=== PATIENT | male | born 1955 | race Caucasian/White ===

== ENCOUNTER 2023-11-30 11:29 | Outpatient (AMB) | payer BC, SELFPAY ==
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
== END 2023-11-30 12:39 | disposition home or self-care (01) ==
PROVIDERS: PCP Pediatrics; Visit Provider Physician Assistant
DX: M53.3 Sacrococcygeal disorders, not elsewhere classified (principal); G89.29 Other chronic pain
CPT/HCPCS: 99213

== ENCOUNTER → 2023-11-30 11:29 | Outpatient (BNVA) | payer MEDICARE, SELFPAY | PROVIDERS: PCP Pediatrics; Visit Provider Physician Assistant ==

== ENCOUNTER 2023-12-24 15:07 | Outpatient (REF) | payer BC, SELFPAY | END 2023-12-24 15:08 | disposition home or self-care (01) | LOC: HO.HOSX 15:07 | PROVIDERS: Visit Provider Physician Assistant | DX: Z13.89 Encounter for screening for other disorder (principal) ==

== ENCOUNTER 2023-12-27 09:30 | Outpatient (REF) | payer BC, SELFPAY ==
--- NOTE | ~2023-12-27 | XR_ITS ---
EXAMINATION: XR HIP, RIGHT CLINICAL INFORMATION: Sacroiliac disorder. COMPARISON: None available. TECHNIQUE: Single pelvic image and 2 detailed views of the right hip. FINDINGS: The pelvic image demonstrates probable degenerative change in the lower lumbosacral spine and SI joints. Some degenerative changes are noted in the hips. The femoral head contours remain fairly smooth. The detailed imaging of the right hip shows likely degenerative changes and degeneration at the labral attachment. Degeneration along the greater trochanter. The femoral head contour remains smooth but there is irregularity along the capsule consistent with degeneration. XR/XR hip RT min 2V IMPRESSION: No acute finding. Degenerative changes are noted here. The femoral head contour, however, remains fairly smooth. If further evaluation is warranted, recommend MRI.
== END 2023-12-27 09:31 | disposition home or self-care (01) ==
LOC: HO.HOSX 09:30
PROVIDERS: Visit Provider Physician Assistant
DX: M53.3 Sacrococcygeal disorders, not elsewhere classified (principal)
CPT/HCPCS: 73502

== ENCOUNTER 2024-01-27 07:33 | Day surgery (SDC) | payer MEDICARE, SELFPAY ==
[2024-01-25 11:01] VITALS: BMI 40.3
--- NOTE | ~2024-01-27 | FL_ITS ---
EXAMINATION: XR FLUOROSCOPY WITH IMAGES CLINICAL INFORMATION: SI joint fusion, right. COMPARISON: None available. TECHNIQUE: Fluoroscopy Supervised By: Dr. Jimenez. Fluoroscopy Time: 1 min, 17.8 sec. Cumulative Dose: 56.556 mGy. DAP: 20.529 Gycm2. Images: 2. FINDINGS: Intraoperative fluoroscopy and spot films were performed during a procedure in the OR. A lateral image demonstrates 2 wires overlying the sacrum. No definite needle or wire is seen on the AP radiograph. Please see Dr. Weems's report for complete details. FL/FL guidance in OR IMPRESSION: Intraoperative fluoroscopy and spot films were obtained. Please see Faustina's report for complete details.
--- NOTE | 2024-01-27 07:36 | P.DS_ITS ---
DS: Providers Provider Date of Service: 01/27/24 Date of discharge: 01/27/24 Primary care physician: Garett Weller MD Admitting clinician: Cornelius Jimenez DS: Diagnosis Discharge Diagnosis (1) Chronic SI joint pain: Status: Acute DS: Summary Time Attestation Discharge Coordination Time (in mins): 6 Quality: Safe Use of Opioids Does Pt have an Active Cancer Diagnosis on the Problem List?: No Quality: Stroke Does the patient have a stroke diagnosis?: No Physical Exam Vital Signs: Vital Signs: BMI result Body Mass Index 40.3 Discharge Plan Discharge Patient Disposition: Home, Self-Care Referrals: Garett Weller MD [Primary Care Provider] - 1 Week Discharge Medications: New docusate sodium [Colace] 100 mg capsule 100 mg PO BID Qty: 20 0RF oxycodone 5 mg tablet 5 mg PO Q4H PRN (Reason: pain) Qty: 30 0RF Rx Instructions: Partial Fill upon patient request. Continued atorvastatin 40 mg tablet 40 mg PO DAILY aspirin 81 mg Tablet,Delayed Release (Dr/Ec) 81 mg PO DAILY lisinopril 10 mg tablet 10 mg PO DAILY sertraline 50 mg tablet 50 mg PO DAILY naproxen 500 mg tablet 500 mg PO BID PRN (Reason: pain) fenofibrate 54 mg tablet 54 mg PO DAILY Discharge Orders: Discharge Order (Routine); Ordered 01/27/24 Ordered By: Ed Arellano Diet: Advance to usual diet Activity on Discharge: As tolerated Activity Restrictions/Additional Instructions: After your SI joint fusion surgery we ask you to observe the following restrictions/guidelines: Activity: It is normal to feel some discomfort as you increase your activity, but that will improve with time. We ask you avoid heavy lifting or acitivities that cause pain. As a general rule, 8lbs is a safe limit for lifting right after surgery. We ask you to stay off your right leg after surgery in order to help the SI joint fuse. Please use crutches or walker. You may return to driving when you are off narcotics (such as vicodin, oxycodone, dilaudid, etc), and you are back to normal functional capacity. If you have any concerns please check with office before driving. Return to work is specific to each patient and each surgery, so please speak with your doctor/PA at first follow up. Please bring paperwork such as FMLA at that time if you need it filled out. Follow up: Please call the office, , after surgery to arrange a 3 week follow up for wound check. Wound Care: Your wound was closed with glue, there are no sutures to remove. You may shower on post op day # 1. We ask that you do not let the water soak the wound. If it does get wet, just towel dry lightly. Please do not scrub your incision or place any type of chemical/ointment on the wound. No tub baths, pools or jacuzzis for one month. If you have any leaking or redness from your wound, or fevers, please call office Medications: We will give you a short supply of narcotics after surgery (usually one weeks worth). If you need more please call the office but do not use more than prescribed. You will need to give our office 48 hours notice if you need narcotics refilled and we do not fill narcotics on weekends or evenings. If you are on a narcotic, it is a good idea to take a stool softener such as colace or senna to avoid constipation If you take blood thinner such as aspirin, Plavix, Coumadin, Effient, Eliquis etc for conditions such as Afib, DVT, Pulmonary embolus, coronary disease, stents etc please speak with your surgeon about specific details as to when you can resume these medications. You can resume NSAIDs on post op day 1 (eg: Motrin, Naproxen, etc). Print Language: Upper Sorbian
[2024-01-27 08:15] VITALS: BP 141/51; PULSE 63; RESP 18; TEMP 36.7; O2SAT 95
[2024-01-27] MEDS: Gabapentin 300 MG CAPSULE PO (08:26)
[2024-01-27] MEDS: methocarbamoL 750 MG TABLET PO (08:26)
[2024-01-27] MEDS: Lactated Ringers 1,000 ML 100 ML IVCONT (08:33)
--- NOTE | 2024-01-27 08:46 | P.HPSUR_ITS ---
Pre-Procedural Eval Section A - 24 Hr Update-Section A only Date of Service: 01/27/24 Section B - Complete if H&P > 30 days Chief Complaint: Other chronic pain Details of Present Illness: Right SI joint pain Relevant Family History (Specify if Yes): No Relevant Social History: None Allergies: Allergies Allergy/AdvReac Type Severity Reaction Status Date / Time No Known Allergies Allergy Verified 01/27/24 08:06 Review of Systems Sugical H&P ROS: Negative: Constitution, Cardiovascular, Respiratory, Neurol ogical, Psychiatric, Hem-Onc, Allergic/Immunologic, Gastrointestinal, Genitourinary, Integumentary, Endocrine and Eyes/Ears/Nose/Throat and Yes, Specify: Musculoskeletal (Pain right SI joint) Exam Surgical H&P Exam: Normal: Skin and Normal: Neurological and Not Evaluated: HEENT, Not Evaluated: Heart, Not Evaluated: Lungs, Not Evaluated: Extremities and Not Evaluated: Abdomen Plan Diagnosis/Plan: Unchanged I have reviewed the history and physical and performed a pertinent physical examination on my patient. No changes have occurred unless specified. Right SI joint fusion Time Spent With Patient Time: Total time managing care of this patient today ____10 minutes.
--- NOTE | 2024-01-27 08:55 | P.CONAN_ITS ---
Documented by User: Kristy Deleon NP 01/26/24 12:55 HPI - Anesthesia Eval Consult details Narrative: 68yo M for Right Sacroiliac Joint Fusion Smoker ETOH daily: 5 beers PMFSH Active Problems Active Problems: All Active Problems Chronic SI joint pain (Acute) Past Medical History Medical History Elevated cholesterol Alcohol dependence Hypertriglyceridemia Pre-diabetes HTN (hypertension) Aortic root dilatation Atypical chest pain Lung nodule Mild aortic stenosis Chronic back pain Surgical History Surgical History History of total right knee replacement Hx of tonsillectomy H/O colonoscopy Social History Social History (Updated 01/25/24 @ 11:00 by Margaret Dejesus RN) Patient Tobacco Use Status: Current everyday Tobacco user Tobacco use type: Cigarette Cigarette Packs Per Day: 1 Cigarettes Per Day: 20.0 Years Smoked: 45 Use of substances other than those prescribed or required for medical reasons: Yes Are you DNR?: No Advance Directives: No Advance Directives Information Provided: Yes Meds Allergies Allergy/AdvReac Type Severity Reaction Status Date / Time No Known Allergies Allergy Verified 01/27/24 08:06 Home Medications ?Medication ?Instructions ?Recorded ?Confirmed ?Last Taken ?Type aspirin 81 mg tablet,delayed 81 mg PO DAILY 01/25/24 01/27/24 01/21/24 History release atorvastatin 40 mg tablet 40 mg PO DAILY 01/25/24 01/27/24 Unknown History fenofibrate 54 mg tablet 54 mg PO DAILY 01/25/24 01/27/24 Unknown History lisinopril 10 mg tablet 10 mg PO DAILY 01/25/24 01/27/24 Unknown History naproxen 500 mg tablet 500 mg PO BID PRN pain 01/25/24 01/27/24 Unknown History sertraline 50 mg tablet 50 mg PO DAILY 01/25/24 01/27/24 Unknown History Exam Height,Weight and Vital Signs: Height 5 ft 6 in Weight 113.398 kg Narrative Narrative: ECHO 12/2022 SB @ 56 ECHO 01/2023 1. Nml LV size, wall thickness and systolic function. LVEF 55-60%. Nml regional wall motion. Indeterminate LV diastolic function. 2. Mild aortic stenosis 3. C/w 2018, no change in severity of . Asc aorta is nominally larger from 3.8 to 3.9cm Assessment and Plan Assessment Anesthesia Assessment: Chart Reviewed Documented by User: Lizz Kaur DO 01/27/24 09:01 HPI - Anesthesia Eval Consult details Narrative: 68yo M for Right Sacroiliac Joint Fusion Smoker ETOH daily: 5 beers previously but patient reports cutting back. Now drinks vodka several times per week. Hx of mild with LAURA 1.2 cm2. [facility] Past Medical History Medical History Elevated cholesterol Alcohol dependence Hypertriglyceridemia Pre-diabetes HTN (hypertension) Aortic root dilatation Atypical chest pain Lung nodule Mild aortic stenosis Chronic back pain Family History Family history of problems with anesthesia: No Surgical History Surgical History History of total right knee replacement Hx of tonsillectomy H/O colonoscopy History of Problems with Anesthesia: No Social History Social History (Updated 01/25/24 @ 11:00 by Margaret Dejesus RN) Patient Tobacco Use Status: Current everyday Tobacco user Tobacco use type: Cigarette Cigarette Packs Per Day: 1 Cigarettes Per Day: 20.0 Years Smoked: 45 Use of substances other than those prescribed or required for medical reasons: Yes Are you DNR?: No Advance Directives: No Advance Directives Information Provided: Yes Meds Allergies Allergy/AdvReac Type Severity Reaction Status Date / Time No Known Allergies Allergy Verified 01/27/24 08:06 Home Medications ?Medication ?Instructions ?Recorded ?Confirmed ?Last Taken ?Type aspirin 81 mg tablet,delayed 81 mg PO DAILY 01/25/24 01/27/24 01/21/24 History release atorvastatin 40 mg tablet 40 mg PO DAILY 01/25/24 01/27/24 Unknown History fenofibrate 54 mg tablet 54 mg PO DAILY 01/25/24 01/27/24 Unknown History lisinopril 10 mg tablet 10 mg PO DAILY 01/25/24 01/27/24 Unknown History naproxen 500 mg tablet 500 mg PO BID PRN pain 01/25/24 01/27/24 Unknown History sertraline 50 mg tablet 50 mg PO DAILY 01/25/24 01/27/24 Unknown History Exam Exam Date and Time: January 27, 2024 0854 Height,Weight and Vital Signs: Height 5 ft 6 in Weight 113.398 kg Vital Signs Temperature 98.0 F 01/27/24 08:15 Pulse Rate 63 01/27/24 08:15 Respiratory Rate 18 01/27/24 08:15 Blood Pressure 141/51 H 01/27/24 08:15 Pulse Oximetry 95 01/27/24 08:15 Oxygen Delivery Method Room Air 01/27/24 08:15 Temperature 98.0 F 01/27/24 08:15 Pulse Rate 63 01/27/24 08:15 Respiratory Rate 18 01/27/24 08:15 Blood Pressure 141/51 H 01/27/24 08:15 Pulse Oximetry 95 01/27/24 08:15 Oxygen Delivery Method Room Air 01/27/24 08:15 Airway Mallampati Class: III TM Dist: <=3cm Neck ROM: Full Loose/Missing/Broken Teeth: No (patient denies any loose or broken teeth) Heart: S1S2 Lungs: CTAB Assessment and Plan Assessment Anesthesia Assessment: Anesthesia Plan Discussed and Chart Reviewed Final Anesthetic Review Family History of Problems with Anesthesia: No History of Problems with Anesthesia: No NPO: Yes ASA Class: III Final Preanesthetic Review: No Changes in Pt Med Stat, Meds/Allgs Chart Reviewed, Consent Obtained/Reviewed and Anes Risks/Benef Reviewed Patient Risk: Intermediate Procedure Risk: Intermediate Anesthetic Plan Anesthetic Plan: GA Disposition: Standard PACU
--- NOTE | 2024-01-27 11:54 | P.OP_ITS ---
Operative Note Operative Note Date of Service: 01/27/24 Narrative: Preoperative diagnosis: Right sacroiliac joint dysfunction Postoperative diagnosis: Same Operative procedure: Right sacroiliac joint fusion with 1 allograft implant Surgeon: Cornelius Jimenez MD, PhD Beaming Machine Operator: Ed Arellano PA-C Anesthesia: General Description of procedure: The patient is suffering from right SI joint dysfunction refractory to nonoperative management. The patient has tried and failed all forms of conservative manage med except for an excellent short-term response to a sacroiliac joint injection. The sacroiliac joint was confirmed to be the pain generator after repeated pain blocks. The patient was offered surgical treatment with fixation and arthrodesis of the SI joint. The patient was brought to the operating room and endotracheally intubated. The patient was turned in a prone position on Geronimo spine table. Prepping and draping was done followed by a time-out. A C-arm was alternately positioned for lateral, oblique oblique and pelvic inlet and outlet projections througout the procedure. Skin markings were made for the anticipated position of the implant. A 2.5 cm longitudinal skin incision was made. A guide pin was inserted in an outlet oblique image for guidance follow-up insertion of dilator and working cannula. This was secured by placing an anchor pin into the ilium. Consideration was taken to cut channels utilizing a series of drills for decortication and internal fixation device placement. The implant was inserted such that it passed through the ilium, across the sacroiliac joint and into the sacrum, thus transfixing the sacroiliac joint. Proper positioning was confirmed on lateral fluoroscopy. The implant was packed with autologous bone collected from remain of the sacrum and ilium. Additional graft material was inserted into the marte nitesh void following the implant. The instruments were withdrawn. Upon completion, final images were obtained that showed a satisfactory position of the implant. Hemostasis was done. The incision was closed with an 0 Vicryl to fashion a 3-0 Vicryl subdermal layer after injecting Marcaine. Dermabond was used to approximate the surgeon. All sponge and needle counts were correct. Patient was extubated and transported in a stable condition to recovery room. Estimated blood loss: 30 mL Complications: None Disposition: Discharge to home
[2024-01-27 11:55] VITALS: BP 106/39; PULSE 80; RESP 16; TEMP 36.6; O2SAT 99
[2024-01-27 12:00] VITALS: BP 101/50; PULSE 77; RESP 16; O2SAT 94
[2024-01-27 12:05] VITALS: BP 119/49; PULSE 73; RESP 16; O2SAT 95
[2024-01-27 12:10] VITALS: BP 120/56; PULSE 75; RESP 16; O2SAT 95
[2024-01-27 12:25] VITALS: BP 111/50; PULSE 68; RESP 16; TEMP 36.6; O2SAT 95
== END 2024-01-27 13:11 | disposition home or self-care (01) ==
PROVIDERS: PCP Pediatrics; Visit Provider Neurological Surgery
PROC: (CPT 27279; principal; 2024-01-27 10:10)
DX: M53.3 Sacrococcygeal disorders, not elsewhere classified (principal); M46.1 Sacroiliitis, not elsewhere classified; G89.29 Other chronic pain; M54.50 Low back pain, unspecified
CPT/HCPCS: 27279; A4364; C1713; J0131; J0690; J1100; J2250; J2371; J2405; J2704; J3010; L8699

== ENCOUNTER → 2024-01-27 07:33 | Outpatient (BNV) | payer MEDICARE, SELFPAY | PROVIDERS: PCP Pediatrics; Visit Provider Physician Assistant | DX: M53.3 Sacrococcygeal disorders, not elsewhere classified (principal); G89.29 Other chronic pain | CPT/HCPCS: 27279; 99499 ==

== ENCOUNTER 2024-02-17 14:30 | Outpatient (REF) | payer MEDICARE, SELFPAY | END 2024-02-17 14:31 | disposition home or self-care (01) | LOC: HO.HOSX 14:30 | PROVIDERS: PCP Pediatrics; Visit Provider Physician Assistant | DX: M53.3 Sacrococcygeal disorders, not elsewhere classified (principal); G89.29 Other chronic pain; Z47.89 Encounter for other orthopedic aftercare; Z98.1 Arthrodesis status | CPT/HCPCS: 99212 ==

== ENCOUNTER 2024-02-17 14:30 | Outpatient (AMB) | payer MEDICARE, SELFPAY ==
--- NOTE | 2024-02-17 14:46 | HO.SPINEOV ---
Intake Visit Reasons: 1st post op Intake Note: Mr. Villanueva is here today for his 1st post ip appointment. 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 Has noticed some improvement in the pain, so he has been pleased with that. He has been using a cane and trying to stay off the right leg as much as possible. He has been walking on it. His wound is healed up nicely. We discussed activity guidelines, restrictions and expectations after SI joint fusion. The patient will follow up in 3 weeks with a set of x-rays for his final postoperative visit. We can reschedule his left SI joint fusion as long as he is healing well at the next visit. Ed Jimenez MD, PhD [facility] Orders: Orders XR pelvis min 3V Today G89.29 - Other chronic pain, M53.3 - Sacrococcygeal disorders, not elsewhere classified Coding Level of Care Code Global (13499) Diagnoses Chronic SI joint pain M53.3; G89.29
== END 2024-02-17 14:58 | disposition home or self-care (01) ==
PROVIDERS: PCP Pediatrics; Visit Provider Physician Assistant
DX: M53.3 Sacrococcygeal disorders, not elsewhere classified (principal); G89.29 Other chronic pain
CPT/HCPCS: 99024

== ENCOUNTER 2024-03-20 11:27 | Outpatient (AMB) | payer MEDICARE, SELFPAY ==
--- NOTE | 2024-03-20 12:01 | HO.SPINEOV ---
Intake Visit Reasons: 2 week F/u with xray Intake Note: Mr. 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 He seemed significant relief of his SI joint pain from the surgery in his glad he had it done. He is looking forward to getting the left side done. His x-rays today look great. We discussed activity guidelines, restrictions and expectations after SI joint fusion. We have tentatively put him on the books for July 27 for his left SI joint fusion. All pertinent risks and benefits were discussed again, he will stop his baby aspirin 1 week prior to surgery. Ed Jimenez MD, PhD [facility] Coding Level of Care Code Global (53743) Diagnoses Chronic SI joint pain M53.3; G89.29
== END 2024-03-20 12:47 | disposition home or self-care (01) ==
PROVIDERS: PCP Pediatrics; Visit Provider Physician Assistant
DX: M53.3 Sacrococcygeal disorders, not elsewhere classified (principal); G89.29 Other chronic pain
CPT/HCPCS: 99024

== ENCOUNTER 2024-03-20 14:54 | Outpatient (REF) | payer MEDICARE, SELFPAY ==
--- NOTE | ~2024-03-20 | XR_ITS ---
EXAMINATION: XR SACROILIAC JOINTS CLINICAL INFORMATION: Sacrococcygeal disorders. Focus on the right SI joint. COMPARISON: 12/27/2023 TECHNIQUE: 3 views of the sacroiliac joints FINDINGS: Bones are osteopenic. There is mild-moderate osteoarthritis in both hips characterized by joint space narrowing and marginal osteophytes. No findings of sacroiliitis. Bridging osteophytes are suspected at the proximal margins of the SI joints bilaterally. Degenerative disc disease and facet arthropathy are present in the lower lumbar spine. Enthesopathic spurring is present at the anterior superior iliac spines and greater trochanters. XR/XR sacroiliac joint min 3V IMPRESSION: 1. Mild-moderate osteoarthritis in both hips. 2. No findings of sacroiliitis. 3. Degenerative disc disease and facet arthropathy in the lower lumbar spine.
== END 2024-03-20 14:55 | disposition home or self-care (01) ==
LOC: HO.HOSX 14:54
PROVIDERS: Visit Provider Physician Assistant
DX: M53.3 Sacrococcygeal disorders, not elsewhere classified (principal); G89.29 Other chronic pain
CPT/HCPCS: 72202; 99212

== ENCOUNTER → 2024-11-02 10:56 | Outpatient (BNV) | payer MEDICARE, SELFPAY | PROVIDERS: PCP Pediatrics; Visit Provider Internal Medicine | DX: R94.31 Abnormal electrocardiogram [ECG] [EKG] (principal) | CPT/HCPCS: 93010 ==

== ENCOUNTER 2024-11-16 07:57 | Day surgery (SDC) | payer MEDICARE, SELFPAY ==
--- NOTE | 2024-11-02 | ECG_ITS ---
Test Reason : PRE OP Blood Pressure : */* mmHG Vent. Rate : 66 BPM Atrial Rate : 66 BPM P-R Int : 152 ms QRS Dur : 82 ms QT Int : 388 ms P-R-T Axes : 77 30 86 degrees QTcB Int : 406 ms Normal sinus rhythm Cannot rule out Inferior infarct , age undetermined - could be normal variant/from lead placement Borderline ECG No previous ECGs available Referred By: Kristy Deleon Electronically Signed By: ANGIE BARKER
[2024-11-02 10:29] VITALS: BP 137/62; PULSE 66; RESP 16; O2SAT 93; BMI 41.4
--- NOTE | 2024-11-02 10:43 | HO.ANESPROP2 ---
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 Has not been seen since 2022. Encouraged follow up ETOH: has cut back on beer, drinks a couple vodkas a couple times weekly PMFSH Active Problems Active Problems: All Active Problems Chronic SI joint pain (Acute) Past Medical History Medical History Arthritis Back pain Elevated cholesterol Alcohol dependence Hypertriglyceridemia Pre-diabetes HTN (hypertension) Aortic root dilatation Atypical chest pain Lung nodule Mild aortic stenosis Chronic back pain Family History Family history of problems with anesthesia: No Surgical History Surgical History Hx of spinal surgery History of total right knee replacement Hx of tonsillectomy H/O colonoscopy History of Problems with Anesthesia: No Social History Social History Are you a primary career resource technician to a significant other at home: No Do you presently have visiting nurse or other home services: No Patient Tobacco Use Status: Current everyday Tobacco user Tobacco use type: Cigarette Cigarette Packs Per Day: 1.0 Cigarettes Per Day: 20.0 Years Smoked: 45 Use of substances other than those prescribed or required for medical reasons: No Have you been hit, kicked, punched, or otherwise hurt by someone within the past year? If so, by whom?: No Are you DNR?: No Advance Directives: No Advance Directives Information Provided: Yes Advance Directives on File: No Recently lost weight without trying: No Eating poorly because of decreased appetite: No Nutrition Risks: No Nutritional Risk Poor oral hygiene: No Meds Allergies Allergy/AdvReac Type Severity Reaction Status Date / Time No Known Allergies Allergy Verified 03/20/24 12:02 Home Medications ?Medication ?Instructions ?Recorded ?Confirmed ?Last Taken ?Type aspirin 81 mg tablet,delayed 81 mg PO DAILY 01/25/24 11/02/24 01/21/24 History release atorvastatin 40 mg tablet 40 mg PO DAILY 01/25/24 11/02/24 Unknown History fenofibrate 54 mg tablet 54 mg PO DAILY 01/25/24 11/02/24 Unknown History lisinopril 10 mg tablet 10 mg PO DAILY 01/25/24 11/02/24 Unknown History sertraline 50 mg tablet 50 mg PO DAILY 01/25/24 11/02/24 Unknown History Exam Height,Weight and Vital Signs: Height 5 ft 5 in Weight 112.945 kg Last Vital Signs Pulse 66 11/02/24 10:29 Resp 16 11/02/24 10:29 BP 137/62 11/02/24 10:29 Pulse Ox 93 11/02/24 10:29 O2 Del Method Room Air 11/02/24 10:29 Pertinent Lab Results Pertinent Lab Results: Lab Results 11/02/24 Range/Units 11:13 WBC 10.0 (4.8-10.8) X10*3/uL RBC 5.00 (4.60-5.80) X10*6/uL Hgb 15.3 (14.0-18.0) g/dl Hct 46.6 (42.0-52.0) % MCV 93.2 (80.0-98.0) fL MCH 30.6 (27.0-33.0) pg MCHC 32.8 (31.0-36.0) g/dl RDW 12.4 (11.0-16.0) % Plt Count 223 (160-400) X10*3/uL MPV 12.0 (9.4-12.4) fL Absolute Nucleated RBC 0.000 (0.0-0.012) X10*3/uL Nucleated RBC % (auto) 0.0 (0.0-0.2) /100WBC Sodium 138 (135-145) mmol/L Potassium 4.5 (3.3-5.1) mmol/L Chloride 105 (96-108) mmol/L Carbon Dioxide 24 (22-29) mmol/L Anion Gap 14 (12-20) BUN 16 (9-16) mg/dL Creatinine 0.79 (0.5-1.4) mg/dL Estim Creat Clear Calc 103.8 Estimated GFR > 60 Random Glucose 106 (60-115) mg/dL Calcium 9.8 (8.4-10.2) mg/dL Narrative Narrative: EKG 10/2024 Vent. Rate : 66 BPM Atrial Rate : 66 BPM P-R Int : 152 ms QRS Dur : 82 ms QT Int : 388 ms P-R-T Axes : 77 30 86 degrees QTcB Int : 406 ms Normal sinus rhythm Cannot rule out Inferior infarct , age undetermined - could be normal variant/from lead placement Borderline ECG No previous ECGs available No change from previous from outside facility ECHO 2022 1. Nml LV size, wall thickness, and sys function. LVEF 55-60%%. Nml RWM. Indetereminate LV diastolic function. 2. Mild aortic stenosis. (LAURA 1.4cm2) 3. Compared to 2018, no change in severity of , ascending aorta nominally larger from 3.8-3.9cm Airway Mallampati Class: III TM Dist: >3cm Neck ROM: Full Loose/Missing/Broken Teeth: No Heart: RRR Lungs: CTAB Assessment and Plan Assessment Anesthesia Assessment: Anesthesia Plan Discussed and PAT Visit Final Anesthetic Review Family History of Problems with Anesthesia: No History of Problems with Anesthesia: No Documented by User: Julieth Mosqueda MD 11/16/24 10:19 [facility] Past Medical History Medical History Arthritis Back pain Elevated cholesterol Alcohol dependence Hypertriglyceridemia Pre-diabetes HTN (hypertension) Aortic root dilatation Atypical chest pain Lung nodule Mild aortic stenosis Chronic back pain Surgical History Surgical History Hx of spinal surgery History of total right knee replacement Hx of tonsillectomy H/O colonoscopy Social History Social History Are you a primary career resource technician to a significant other at home: No Do you presently have visiting nurse or other home services: No Patient Tobacco Use Status: Current everyday Tobacco user Tobacco use type: Cigarette Cigarette Packs Per Day: 1.0 Cigarettes Per Day: 20.0 Years Smoked: 45 Use of substances other than those prescribed or required for medical reasons: No Have you been hit, kicked, punched, or otherwise hurt by someone within the past year? If so, by whom?: No Are you DNR?: No Advance Directives: No Advance Directives Information Provided: Yes Advance Directives on File: No Recently lost weight without trying: No Eating poorly because of decreased appetite: No Nutrition Risks: No Nutritional Risk Poor oral hygiene: No Meds Allergies Allergy/AdvReac Type Severity Reaction Status Date / Time No Known Allergies Allergy Verified 03/20/24 12:02 Home Medications ?Medication ?Instructions ?Recorded ?Confirmed ?Last Taken ?Type aspirin 81 mg tablet,delayed 81 mg PO DAILY 01/25/24 11/02/24 01/21/24 History release atorvastatin 40 mg tablet 40 mg PO DAILY 01/25/24 11/02/24 Unknown History fenofibrate 54 mg tablet 54 mg PO DAILY 01/25/24 11/02/24 Unknown History lisinopril 10 mg tablet 10 mg PO DAILY 01/25/24 11/02/24 Unknown History sertraline 50 mg tablet 50 mg PO DAILY 01/25/24 11/02/24 Unknown History Assessment and Plan Assessment Anesthesia Assessment: Chart Reviewed Final Anesthetic Review NPO: Yes ASA Class: III Final Preanesthetic Review: No Changes in Pt Med Stat, Meds/Allgs Chart Reviewed, Consent Obtained/Reviewed and Anes Risks/Benef Reviewed Patient Risk: Intermediate Procedure Risk: Intermediate Anesthetic Plan Anesthetic Plan: GA Disposition: Standard PACU
[2024-11-02 12:00] LABS: Hematocrit 46.6 % (42.0-52.0); Hemoglobin 15.3 g/dl (14.0-18.0); Mean Corpuscular HGB Conc 32.8 g/dl (31.0-36.0); Mean Corpuscular Hemoglobin 30.6 pg (27.0-33.0); Mean Corpuscular Volume 93.2 fL (80.0-98.0); Platelet Count 223 X10*3/uL (160-400); Red Cell Distribution Width 12.4 % (11.0-16.0)
[2024-11-02 12:33] LABS: Anion Gap 14 (12-20); Blood Urea Nitrogen 16 mg/dL (9-16); Calcium 9.8 mg/dL (8.4-10.2); Carbon Dioxide 24 mmol/L (22-29); Chloride 105 mmol/L (96-108); Creatinine Clr Calc Pharmacy 103.8; Estimated Glomerular Filt Rate > 60; Glucose Random 106 mg/dL (60-115); Potassium 4.5 mmol/L (3.3-5.1); Sodium 138 mmol/L (135-145)
--- NOTE | ~2024-11-16 | FL_ITS ---
EXAMINATION: FL GUIDANCE ONLY HISTORY: SI joint fusion COMPARISON: None available. TECHNIQUE: Fluoroscopy time: 3 7.3 seconds. Cumulative Dose: 35.705 mGy. DAP: 14.880 mGym2 Images: 5. FINDINGS: Multiple fluoroscopic spot films were obtained of the left sacroiliac joint with a probe in place. FL/FL guidance in OR IMPRESSION: Fluoroscopy during procedure. Please see procedure report for additional information. Electronically signed by: Sourav Duarte MD 11/16/2024 12:48 PM EDT
[2024-11-16 08:42] VITALS: BP 124/67; PULSE 64; RESP 14; TEMP 36.7; O2SAT 94
[2024-11-16] MEDS: methocarbamoL 750 MG TABLET PO (09:03)
[2024-11-16] MEDS: Gabapentin 300 MG CAPSULE PO (09:03)
[2024-11-16] MEDS: Lactated Ringers 1,000 ML 80 ML IVCONT (09:06)
--- NOTE | 2024-11-16 09:38 | MHC.SHP ---
Pre-Procedural Eval Section A - 24 Hr Update-Section A only Date of Service: 11/16/24 The patient is an INPATIENT: No Section B - Complete if H&P > 30 days Chief Complaint: Sacrococcygeal disorders, not elsewhere classified Details of Present Illness: left SI joint Relevant Family History (Specify if Yes): No Allergies: Allergies Allergy/AdvReac Type Severity Reaction Status Date / Time No Known Allergies Allergy Verified 03/20/24 12:02 Review of Systems Sugical H&P ROS: Negative: Constitution, Cardiovascular, Respiratory, Neurological, Psychiatric, Hem-Onc, Allergic/Immunologic, Gastrointestinal, Genitourinary, Musculoskeletal, Integumentary, Endocrine and Eyes/Ears/Nose/Throat Exam Surgical H&P Exam: Normal: HEENT, Normal: Heart, Normal: Lungs, Normal: Extremities, Normal: Abdomen, Normal: Skin and Normal: Neurological (Awake, alert) Plan Diagnosis/Plan: Unchanged I have reviewed the history and physical and performed a pertinent physical examination on my patient. No changes have occurred unless specified. Left SI joint fusion Time Spent With Patient Time: Total time managing care of this patient today __5__ minutes.
[2024-11-16] MEDS: Acetaminophen 1,000 MG/100 ML PIGGYBACK 400 MG IV (10:40)
[2024-11-16] MEDS: ceFAZolin Sodium/Dextrose,Iso 2 GM/50 ML PIGGYBACK IV (10:40)
--- NOTE | 2024-11-16 11:50 | P.DS_ITS ---
DS: Providers Provider Date of Service: 11/16/24 Date of discharge: 11/16/24 Primary care physician: Garett Weller MD Admitting clinician: Cornelius Jimenez DS: Diagnosis Discharge Diagnosis (1) Chronic SI joint pain: Status: Acute DS: Summary Time Attestation Discharge Coordination Time (in mins): 6 Quality: Safe Use of Opioids Does Pt have an Active Cancer Diagnosis on the Problem List?: No Quality: Stroke Does the patient have a stroke diagnosis?: No Physical Exam Vital Signs: Vital Signs: Last Vital Signs Temp 98.0 F 11/16/24 08:42 Pulse 64 11/16/24 08:42 Resp 14 11/16/24 08:42 BP 124/67 11/16/24 08:42 Pulse Ox 94 11/16/24 08:42 O2 Del Method Room Air 11/16/24 08:42 BMI result Body Mass Index 41.4 Discharge Plan Discharge Patient Disposition: Home, Self-Care Referrals: Garett Weller MD [Primary Care Provider] - 1 Week Discharge Medications: New docusate sodium [Colace] 100 mg capsule 100 mg PO BID Qty: 20 0RF oxycodone 5 mg tablet 5 mg PO Q4H PRN (Reason: pain) Qty: 20 0RF Rx Instructions: Partial Fill upon patient request. Continued atorvastatin 40 mg tablet 40 mg PO DAILY lisinopril 10 mg tablet 10 mg PO DAILY sertraline 50 mg tablet 50 mg PO DAILY fenofibrate 54 mg tablet 54 mg PO DAILY Held aspirin 81 mg Tablet,Delayed Release (Dr/Ec) 81 mg PO DAILY Hold Instructions: Resume on 11/23/24. You may resume 1 week after surgery Discharge Orders: Discharge Order (Routine); Ordered 11/16/24 Ordered By: Ed Arellano Diet: Advance to usual diet Activity on Discharge: Walk with crutches Activity Restrictions/Additional Instructions: After your SI joint fusion surgery we ask you to observe the following restrictions/guidelines: Activity: It is normal to feel some discomfort as you increase your activity, but that will improve with time. We ask you avoid heavy lifting or acitivities that cause pain. As a general rule, 8lbs is a safe limit for lifting right after surgery. We ask you to stay off your left leg after surgery in order to help the SI joint fuse. Please use crutches or walker. You may return to driving when you are off narcotics (such as vicodin, oxycodone, dilaudid, etc), and you are back to normal functional capacity. If you have any concerns please check with office before driving. Return to work is specific to each patient and each surgery, so please speak with your doctor/PA at first follow up. Please bring paperwork such as FMLA at that time if you need it filled out. Follow up: Please call the office, , after surgery to arrange a 3 week follow up for wound check. Wound Care: Your wound was closed with glue, there are no sutures to remove. You may shower on post op day # 1. We ask that you do not let the water soak the wound. If it does get wet, just towel dry lightly. Please do not scrub your incision or place any type of chemical/ointment on the wound. No tub baths, pools or jacuzzis for one month. If you have any leaking or redness from your wound, or fevers, please call office Medications: You can restart aspirin in 1 week We will give you a short supply of narcotics after surgery (usually one weeks worth). If you need more please call the office but do not use more than prescribed. You will need to give our office 48 hours notice if you need narcotics refilled and we do not fill narcotics on weekends or evenings. If you are on a narcotic, it is a good idea to take a stool softener such as col siria or senna to avoid constipation If you take blood thinner such as aspirin, Plavix, Coumadin, Effient, Eliquis etc for conditions such as Afib, DVT, Pulmonary embolus, coronary disease, stents etc please speak with your surgeon about specific details as to when you can resume these medications. You can resume NSAIDs on post op day 1 (eg: Motrin, Naproxen, etc). Print Language: Eritrean
--- NOTE | 2024-11-16 12:03 | W.PM.OPN ---
Operative Note Operative Note Date of Service: 11/16/24 Narrative: Preoperative diagnosis: Left Sacroiliitis Postoperative diagnosis: Same Operative procedure: Left sacroiliac joint fusion with 1 allograft implant Surgeon: Cornelius Jimenez MD, PhD Biofuels Manager: Ed Arellano PA-C Anesthesia: General Description of procedure: The patient is suffering from left SI joint sacroiliitis refractory to nonoperative management. The patient has tried and failed all forms of conservative manage med except for an excellent short-term response to a sacroiliac joint injection. The sacroiliac joint was confirmed to be the pain generator after repeated pain blocks. The patient was offered surgical treatment with fixation and arthrodesis of the SI joint. The patient was brought to the operating room and endotracheally intubated. The patient was turned in a prone position on Geronimo spine table. Prepping and draping was done followed by a time-out. A C-arm was alternately positioned for lateral, oblique oblique and pelvic inlet and outlet projections througout the procedure. Skin markings were made for the anticipated position of the implant. A 2.5 cm longitudinal skin incision was made. A guide pin was inserted in an outlet oblique image for guidance follow-up insertion of dilator and working cannula. This was secured by placing an anchor pin into the ilium. Consideration was taken to cut channels utilizing a series of drills for decortication and internal fixation device placement. The implant was inserted such that it passed through the ilium, across the sacroiliac joint and into the sacrum, thus transfixing the sacroiliac joint. Proper positioning was confirmed on lateral fluoroscopy. The implant was packed with autologous bone collected from remain of the sacrum and ilium. Additional graft material was inserted into the channel void following the implant. The instruments were withdrawn. Upon completion, final images were obtained that showed a satisfactory position of the implant. Hemostasis was done. The incision was closed with an 0 Vicryl to fashion a 3-0 Vicryl subdermal layer after injecting Marcaine. Dermabond was used to approximate the surgeon. All sponge and needle counts were correct. Patient was extubated and transported in a stable condition to recovery room. Estimated blood loss: 50 mL Complications: None Operative time: 50 minutes Disposition: Discharge to home
[2024-11-16 12:14] VITALS: BP 150/52; PULSE 75; RESP 12; TEMP 36.1; O2SAT 97
[2024-11-16 12:19] VITALS: BP 149/61; PULSE 70; RESP 16; O2SAT 92
[2024-11-16 12:24] VITALS: BP 146/65; PULSE 73; RESP 16; O2SAT 93
[2024-11-16 12:25] VITALS: BP 162/68; PULSE 71; RESP 16; O2SAT 94
== END 2024-11-16 13:05 | disposition home or self-care (01) ==
PROVIDERS: Nurse Practitioner; PCP Pediatrics; Visit Provider Neurological Surgery
PROC: (CPT 27279; principal; 2024-11-16 11:00)
DX: M46.1 Sacroiliitis, not elsewhere classified (principal); G89.29 Other chronic pain; M53.3 Sacrococcygeal disorders, not elsewhere classified; I10 Essential (primary) hypertension; E78.00 Pure hypercholesterolemia, unspecified; R73.03 Prediabetes; M54.9 Dorsalgia, unspecified; F10.20 Alcohol dependence, uncomplicated; Z79.82 Long term (current) use of aspirin; Z79.899 Other long term (current) drug therapy; Z98.890 Other specified postprocedural states; F17.210 Nicotine dependence, cigarettes, uncomplicated
CPT/HCPCS: 27279; 36415; 80048; 85027; 93005; C1713; J0131; J0690; J1100; J2003; J2250; J2405; J2704; J3010; L8699

== ENCOUNTER → 2024-11-16 07:57 | Outpatient (BNV) | payer MEDICARE, SELFPAY | PROVIDERS: PCP Pediatrics; Visit Provider Physician Assistant | DX: M53.3 Sacrococcygeal disorders, not elsewhere classified (principal); G89.29 Other chronic pain | CPT/HCPCS: 27279; 99499 ==

== ENCOUNTER 2024-12-06 10:01 | Outpatient (REF) | payer MEDICARE, SELFPAY | END 2024-12-06 10:02 | disposition home or self-care (01) | LOC: HO.HOSX 10:01 | PROVIDERS: PCP Pediatrics; Visit Provider Physician Assistant | DX: Z98.1 Arthrodesis status (principal) | CPT/HCPCS: 99212 ==

== ENCOUNTER 2024-12-06 10:01 | Outpatient (AMB) | payer MEDICARE, SELFPAY ==
--- NOTE | 2024-12-06 10:06 | A.SPINEOV_ITS ---
Intake Visit Reasons: 1st post op Intake Note: Mr. Montenegro is here today for his 1st post op. Diving Judge Required: No Allergies No Known Allergies Allergy (Verified 11/16/24 10:45) Assessment & Plan Assessment & Plan (1) S/P fusion of sacroiliac joint: Code(s): Z98.1 - Arthrodesis status Category: Surgical Plan Operative procedure: Left sacroiliac joint fusion Denys comes in today for his 1st postoperative appointment after having a left SI joint fusion completed by Dr. Jimenez about 3 weeks ago. He is accompanied by his Rafaela. He reports that overall he has done very well since his surgery. He has been ambulating with the assistance of a cane I tried to refrain from excessive weight-bearing on his left-hand side. He is not taking any medications anymore for the pain. He feels he has been ambulating well and making satisfactory progress overall. He asked several questions regarding the postoperative healing course, all of which I answered to the best of my ability today. No new neurological deficits. The patient ambulates well and rises from a seated position without difficulty. He does use his cane for assistance with ambulation. His posterior incision site is closed and well healing with no signs of drainage or edema. I would like to follow up with Denys again in 6 weeks and obtain a set of x- rays of the left SI joint. Carlos Jimenez MD,PhD [facility] Orders: Orders XR sacroiliac joint 1-2V Today Z98.1 - Arthrodesis status Coding Level of Care Code Global (42191) Diagnoses S/P fusion of sacroiliac joint Z98.1
--- OUTSIDE RECORDS SUMMARY | 2024-12-06 11:32 | XMS_ITS | Clinical Summary ---
[facility] Address [address] [place] [address] Care Team Providers Care Puller Over Name Role Phone Garett Weller MD Primary Care Provider [phone] Allergies No known active allergies Medications Medication Sig Dispensed Refills Start Date End Date Status ASPIR-LOW 81 MG EC tablet TAKE ONE TABLET BY MOUTH EVERY DAY 1 12/01/2017 Active atorvastatin (LIPITOR) tablet 40 mg 0 12/17/2017 Active fenofibrate (TRICOR,LOFIBRA) tablet 54 mg TAKE ONE TABLET BY MOUTH EVERY DAY 1 12/02/2017 Active lisinopril (PRINIVIL,ZESTRIL) tablet 5 mg TAKE ONE TABLET BY MOUTH EVERY DAY 1 12/01/2017 Active buPROPion (WELLBUTRIN SR) 150 MG 12 hr tablet Take by mouth. 0 Activ e acetaminophen (TYLENOL) [address] 650 mg rectally every 4 (four) hours as needed for fever. 0 Active lisinopril (PRINIVIL,ZESTRIL) tablet 10 mg Take 10 mg by mouth. 0 12/15/2019 Active atorvastatin (LIPITOR) tablet 40 mg Take 40 mg by mouth. 0 06/11/2020 Active sulindac (CLINORIL) 150 MG tablet Take 150 mg by mouth 2 (two) times a day with meals. 0 10/24/2021 Active sertraline (ZOLOFT) 50 MG tablet Take 50 mg by mouth daily. 0 12/10/2021 Active celecoxib (CeleBREX) 200 MG capsule Take 200 mg by mouth daily. 0 02/06/2022 Active gabapentin (NEURONTIN) 300 MG capsule Take 300 mg by mouth every night at bedtime. 0 02/06/2022 Active methocarbamol (ROBAXIN) 750 MG tablet Take 750 mg by mouth 3 (three) times a day as needed. for spasm 0 02/06/2022 Active oxyCODONE (ROXICODONE) 5 MG immediate release tablet TAKE 1-2 TABLETS BY MOUTH EVERY 4-6 HOURS NEEDED FOR PAIN 0 02/06/2022 Active [facility] Senna Plus 8.6-50 MG TAKE 2 TABLETS BY MOUTH AT BEDTIME 0 02/06/2022 Active amoxicillin (AMOXIL) 500 MG tablet Take 4 tabs 1 hour prior to dental appointment 20 tablet 3 02/20/2022 Active Active Problems Problem Noted Date Diagnosed Date Arthritis of knee, right 01/12/2019 Arthritis of knee, left 01/12/2019 Primary osteoarthritis of both knees 12/22/2017 Family History Medical History Relation Name Comments Cancer Brother Cancer Father Hyperlipidemia Mother Relation Name Status Comments Brother Father Mother Social History Tobacco Use Types Packs/Day Years Used Date Smoking Tobacco: Every Day Cigarettes 1 Started: 1972 Alcohol Use Standard Drinks/Week Comments Yes 10 (1 standard drink = 0.6 oz pu re alcohol) Sex and Gender Information Value Date Recorded Sex Assigned at Not on file Gender Identity Not on file Sexual Orientation Not on file Job Start Date Occupation Industry Not on file Not on file Not on file Last Filed Vital Signs Vital Sign Reading Time Taken Comments Blood Pressure - - Pulse - - Temperature - - Respiratory Rate - - Oxygen Saturation - - Inhaled Oxygen Concentration - - Weight 104.3 kg (230 lb) 01/20/2022 10:23 AM EDT Height 167.6 cm (5' 6 ) 01/20/2022 10:23 AM EDT Body Mass Index 37.12 01/20/2022 10:23 AM EDT Plan of Treatment Health Maintenance Due Date Last Done Comments Hepatitis C Screening 1955 COVID-19 Vaccine (#1) 05/25/1956 Pneumococcal Vaccine (1 of 2 - PCV) 11/23/1961 Depression Screening 1967 BMI Counseling 11/23/1973 Preventative Health Evaluation 11/23/1973 Tobacco Cessation Counseling 11/23/1973 Colon Cancer Screening (Colonoscopy) 11/23/2000 Shingrix-Zoster Vaccine (1 of 2) 11/23/2005 Abdominal Aortic Aneurysm (A AA) Screening 11/23/2020 Fall Risk Assessment 11/23/2020 Influenza Vaccine (#1) 2024 DTap / Tdap / Td (2 - Td or Tdap) 05/21/2026 016 RSV Adult > 60+ Yrs or Pregn ant (1 - 1-dose 75+ series) 11/23/2030 Hepatitis B Vaccines Aged Out No long er eligible based on patient's age to complete this topic RSV Ped < 20 months Aged Out No longe r eligible based on patient's age to complete this topic Care Teams Puller Over Relationship Specialty Start Date End Date Garett Weller MD PCP - General Stone Polisher 12/01/17
--- OUTSIDE RECORDS SUMMARY | 2024-12-06 11:33 | XMS_ITS | Clinical Summary ---
Author Organization [facility] [address] [facility] Address [address] [place] [address] Phone Care Team Providers Care Food And Beverage Attendant Name Role Phone Ivan Weller MD Primary Care Provider [phone] Allergies No known active allergies Medications lisinopriL (PRINIVIL,ZESTR IL) 10 mg tablet Take 1 tablet (10 mg total) by mouth 1 (one) time each day. 4 Active fenofibrate (LOFIBRA) 54 mg tablet Take 1 tablet (54 mg total) by mouth 1 (one) time each day. 4 Active aspirin 81 mg EC tablet Take 1 tablet (81 mg total) by mouth 1 (one) time each day. 0 Active atorvastatin (LIPITOR) 40 mg tablet TAKE 1 TABLET BY MOUTH EVERY DAY 90 tablet 1 5 Active sertraline (Zoloft) 50 mg tablet Take 1 tablet (50 mg total) by mouth 1 (one) time each day. 90 tablet 5 Active sertraline (Zoloft) 50 mg tablet Take 1 tablet (50 mg total) by mouth 1 (one) time each day. 90 tablet 5 12/02/19 25 Discontinu ed(Reorder ) Active Problems Problem Noted Date Diagnosed Date Morbid obesity (CMS/HCC V24, CMS/HCC V28) 2024 Diet-controlled diabetes rangel litus ([facility] V24, [facility] V28) 01/05/2024 Aortic stenosis 12/22/2022 Overview (06/09/2024): Last Assessment & Plan: Mild aortic stenosis of trileaflet aortic valve around 5 years ago. I suggested we obtain an echocardiogram to reassess the degree of aortic stenosis which on physical exam is likely mild. We will determine an appropriate follow-up interval for echocardiogram on the basis of this study. I will plan to call the patient and discuss the results directly. I have not scheduled routine clinical follow-up at this time and we can establish further follow-up on the basis of the echocardiogram Chronic bilateral low back pain without sciatica 07/23/2022 Lung nodules 12/02/2020 Overview (06/09/2024): LDCT 11/2020 stable. 12 mo Atypical chest pain 10/19/2018 Overview (06/09/2024): 06/09- ECHO- mild LVH, normal EF. 10/11- MIBI- negative for ischemia Aortic root dilatation ([facility] V24) 07/13/2018 Overview (06/09/2024): 07/10- ECHO- borderline 3.8cm, 1 year f/u echo ordered 02/12--- 3.9 cm Essential hypertension 04/11/2018 Overview (06/09/2024): Last Assessment & Plan: Blood pressure well controlled on current regimen. I not have any specific concerns regarding occasionally low diastolic blood pressure. Prediabetes 02/03/2017 Hypertriglyceridemia 11/19/2016 Excessive drinking alcohol 05/21/2016 Excessive sweating 05/21/2016 Knee pain 09/02/2009 External hemorrhoids 12/08/2006 Overview (06/09/2024): IMO update Pure hypercholesterolemia 12/07/2005 Tobacco use disorder 12/07/2005 Overview (06/09/2024): LDCT 12/13, 12/14. 12 mo Encounters Date Type Department Care Team Description 11/30/2024 Telephone Lung Screening Program - [address] [place] [address] Narcisa Olivo [place] Appointment (1st No) 10/23/2024 3:45 PM EST Office Visit Adult Medicine - [place] [address] [place] [address] Ed Cisse PA Diet-controlled diabetes mellitus ([facility] V24, [facility] V28) (Primary Dx); Hypertriglyceridemia; Essential hypertension; Nonrheumatic aortic valve stenosis; Morbid obesity ([facility] V24, [facility] V28) 10/20/2024 Telephone Adult Medicine - [place] [address] [place] [address] Ed Cisse PA 09/07/2024 Telephone [facility] - [address] [place] [address] Ivan Weller MD Medical Records from Last 3 Months Immunizations Name Administration Dates Next Due Moderna SARS-CoV-2 COVID-19, mRNA, LNP-S, preservative free 10/31/2020,10/03/2020 Pneumococcal conjugate 20 va lent (Prevnar 20, PCV 20) 2mo and older 05/22/2024 Td Tetanus diptheria (Tdvax) 7yo and older 08/07,12/12/2001 Tdap Tetanus diptheria acell ular pertussis (Boostrix; Adacel) 7yo and older 05/21/2016 Surgical History Surgery Date Site/Laterality Comments TONSILLECTOMY 1961 PROCEDURE: HISTORICAL TONSILLECTOMY COLONOSCOPY 03/01/2007 PROCEDURE: HISTORICAL COLONOSCOPY; COMMENT: hemorrhoids; repeat in ten years COLONOSCOPY W/ POLYPECTOMY 11/29/2017 PROCEDURE: DE COLSC FLX W/RMVL OF TUMOR POLYP LESION SNARE TQ; COMMENT: adenoma and hemorrhoids; repeat in 5 yrs TOTAL KNEE ARTHROPLASTY 01/2022 Right PROCEDURE: HISTORICAL TOTAL KNEE REPLACE Medical History Medical History Date Comments Lung nodules 12/02/2020 DX:Lung nodules; COMMENT: LDCT 11/2020 Tobacco use disorder 12/07/2005 DX:Tobacco use disorder Pure hypercholesterolemia 12/07/2005 DX:Pur e hypercholesterolemia Prediabetes 02/03/2017 DX:Prediabetes Hypertriglyceridemia 11/19/2016 DX:Hypertri glyceridemia External hemorrhoids 12/08/2006 DX:External hemorrhoids; COMMENT: IMO update Aortic root dilatation (CMS/HCC V24) 07/13/2018 DX:Aortic root dilatation (HCC); COMMENT: 07/10- ECHO- borderline 3.8cm, 1 year f/u echo ordered Excessive drinking alcohol 05/21/2016 DX:Ex cessive drinking alcohol Family History Medical History Relation Name Comments Other: aids Brother Asthma Daughter Other cancer Father bone and kidney Alzheimer's disease Mother Breast cancer Mother's side aunt Relation Name Status Comments Brother Daughter Alive Father Maternal Grandfather Maternal Grandmother Mother Mother's side Paternal Grandfather Paternal Grandmother Social History Tobacco Use Types Packs/Day Years Used Date Smoking Tobacco: Every Day Cigarettes Smokeless Tobacco: Never Alcohol Use Standard Drinks/Week Comments Yes 0 (1 standard drink = 0.6 oz pur e alcohol) Sex and Gender Information Value Date Recorded Sex Assigned at Not on file Legal Sex Male 2:37 AM EST Gender Identity Not on file Sexual Orientation Not on file Obstetrics History Last Filed Vital Signs Vital Sign Reading Time Taken Comments Blood Pressure 138/58 10/23/2024 3:42 PM EST Pulse 58 10/23/2024 3:42 PM EST Temperature 36.6 ??C (97.9 ??F) 10/23/2024 3:42 PM ES T Respiratory Rate - - Oxygen Saturation - - Inhaled Oxygen Concentration - - Weight 113 kg (249 lb) 10/23/2024 3:42 PM EST Height 167.6 cm (5' 6 ) 10/23/2024 3:42 PM EST Body Mass Index 40.19 10/23/2024 3:42 PM EST Plan of Treatment Upcoming Encounters Date Type Department Care Team (Late st Contact Info) Description 12/15/2024 3:00 PM EDT Appointment [facility] CT Scan [address] [place] [address] Health Maintenance Due Date Last Done Comments Diabetes: Annual Foot Exam 11/23/1965 Diabetes: Annual Retina Eye Exam 11/23/1965 Hepatitis A Vaccines (1 of 2 - Risk 2-dose series) 11/23/1974 Zoster Vaccines (1 of 2) 11/23/2005 RSV Immunization Adult Patients (1 - Risk 60-74 years 1-dose series) 2015 Abdominal Aortic Aneurysm (AAA) Screen 08/01/2022 Depression Screening 08/01/2022 Falls Risk Assessment 08/01/2022 Medicare Annual Wellness Visit 08/01/2022 Social Influencers of Health Screening 08/01/2022 COVID-19 Vaccine ( - season) 2024 07/24/2021, 10/31/2020, 10/03/2020 Lung Cancer Screening (Low Dose CT) 12/19/2024 12/20/2023, 12/17/2023, 12/16/2022, Additional history exists Diabetes: Blood Sugar Control Test (HGBA1C) 04/19/2025 10/20/2024, 01/05/2024, 01/05/2024 Influenza Vaccine (Season Ended) 2025 Diabetes: Annual Urine Albumin-Creatinine Ratio (uACR) 10/20/2025 10/20/2024, 05/22/2021 Diabetes: Annual GFR (Glomerular Filtration Rate) 10/20/2025 10/20/2024, 01/05/2024, 01/05/2024 Hypertension/CHF/CAD Annual BMP Blood Test 10/20/2025 10/20/2024, 01/05/2024, 01/05/2024 DTaP,Tdap,and Td Vaccines (4 - Td or Tdap) 05/21/2026 05/21/2016, 08/07/2005, 12/12/2001 Colorectal Cancer Screening: Colonoscopy 05/05/2029 05/05/2024 Cholesterol Screening (Lipid Panel) 10/20/2029 10/20/2024, 01/05/2024, 01/05/2024 Hepatitis C Screening Completed 05/21/2016 Pneumococcal Vaccine: 50+ Years Completed 05/22/2024 HIB Vaccines Aged Out No longer eligi ble based on patient's age to complete this topic HPV Vaccines Aged Out No longer eligi ble based on patient's age to complete this topic Hepatitis B Vaccines Aged Out No long er eligible based on patient's age to complete this topic IPV Vaccines Aged Out No longer eligi ble based on patient's age to complete this topic MMR Vaccines Aged Out No longer eligi ble based on patient's age to complete this topic Meningococcal ACWY Vaccine Aged Out N o longer eligible based on patient's age to complete this topic Meningococcal B Vaccine Aged Out No l onger eligible based on patient's age to complete this topic RSV Immunization Patients Under 20 months Aged Out No longer eligible based on patient's age to complete this topic Varicella Vaccines Aged Out No longer eligible based on patient's age to complete this topic Procedures Procedure Name Priority Date/Time Associated Diagnosis Comments EXTERNAL XRAY REPORT 11/16/2024 EXTERNAL XRAY REPORT 11/16/2024 MICROALBUMIN CREATININE URINE RATIO Routine 10/20/2024 10:37 AM EST Diet-controlled diabetes mellitus ([facility]/HCC V24, CMS/HCC V28) HEMOGLOBIN A1C Routine 10/20/2024 10:37 AM EST Diet-controlled diabetes mellitus ([facility]/HCC V24, CMS/HCC V28) LIPID PANEL WITH REFLEX TO DIRECT LDL Routine 10/20/2024 10:37 AM EST Diet-controlled diabetes mellitus (CMS/HCC V24, CMS/HCC V28) COMPREHENSIVE METABOLIC PANEL Routine 10/20/2024 10:37 AM EST Diet-controlled diabetes mellitus ([facility]/HCC V24, CMS/HCC V28) COLONOSCOPY Routine 05/05/2024 CT LUNG SCREENING LOW DOSE Routine 12/20/2023 10:30 AM EDT Nicotine dependence, cigarettes, uncomplicated HEPATITIS C SCREENING Routine 05/21/2016 from Last 3 Months or Most Recently Relevant to Health Maintenance Results * External Xray Report (11/16/2024) Only the most recent of2 resultswithin the time period is included. Anatomical Region Laterality Modality Radiographic Gisele ging Provider [facility] XR PROCEDURES Final Result * (ABNORMAL) Lipid panel with reflex to direct LDL (10/20/2024 10:37 AM EST) Cholesterol 184 0 - 200 mg/dL LAB CHEMISTRY METHOD 10/20/2024 2:50 PM EST [facility] Triglycerides 320(H) 0 - 150 mg/dL LAB CHEMISTRY METHOD 10/20/2024 2:50 PM EST [facility] HDL 36(L) >=40 mg/dL LAB CHEMISTRY METHOD 10/20/2024 2:50 PM EST [facility] LDL Calculated 84 0 - 100 mg/dL LAB CHEMISTRY METHOD 10/20/2024 2:50 PM [facility] VLDL Cholesterol Ba 64 mg/dL LAB CHEMISTRY METHOD 10/20/2024 2:50 PM [facility] Non HDL Chol. (LDL+VLDL) 148(H) <145 mg/dL LAB CHEMISTRY METHOD 10/20/2024 2:50 PM [facility] Chol/HDL Ratio 5.1(H) 0.0 - 4.4 LAB CHEMISTRY METHOD 10/20/2024 2:50 PM [facility] Blood Venous blood specimen / Unknown Venipuncture / Unknown 10/20/2024 10:37 AM EST 10/20/2024 10:37 AM EST Ed VAZQUEZ LAB BLOOD ORDERABLES Final Res ult [facility] [address] [place] [address], * Microalbumin creatinine urine ratio (10/20/2024 10:37 AM EST) Creatinine, Urine 116.0 mg/dL LAB CHEMISTRY METHOD 10/20/2024 12:45 PM EST [facility] Microalb, Ur 14.9 0.0 - 29.0 mg/L LAB CHEMISTRY METHOD 10/20/2024 12:45 PM EST [facility] Microalb/Creat Ratio 13 <30 mg/g creat LAB CHEMISTRY METHOD 10/20/2024 12:45 PM EST [facility] Urine Urine specimen obtained by clean catch procedure / Unknown Non-blood Collection / Unknown 10/20/2024 10:37 AM EST 10/20/2024 10:37 AM EST Ed VAZQUEZ LAB URINE ORDERABLES Final Res ult Performing Organization Address [facility]/ZIP Co de Phone Number [facility] [address] [place] [address], [place] [phone] * (ABNORMAL) Hemoglobin A1c (10/20/2024 10:37 AM EST) Hemoglobin A1C 6.6(H) <6.5 % LAB CHEMISTRY METHOD 10/23/2024 2:13 PM EST [facility] Mean Bld Glu Estim. 143 mg/dL LAB CHEMISTRY METHOD 10/23/2024 2:13 PM EST [facility] Blood Venous blood specimen / Unknown Venipuncture / Unknown 10/20/2024 10:37 AM EST 10/20/2024 10:37 AM EST us Ed VAZQUEZ LAB BLOOD ORDERABLES Final Res ult Performing Organization Address City/[facility]/ZIP Co de Phone Number [facility] [address] [place] [address], [place] [phone] * (ABNORMAL) Comprehensive metabolic panel (10/20/2024 10:37 AM EST) Sodium 136 133 - 145 mmol/L LAB CHEMISTRY METHOD 10/20/2024 2:50 PM EST [facility] Potassium 4.8 3.5 - 5.5 mmol/L LAB CHEMISTRY METHOD 10/20/2024 2:50 PM EST [facility] Chloride 105 96 - 110 mmol/L LAB CHEMISTRY METHOD 10/20/2024 2:50 PM [facility] CO2 25 21 - 32 mmol/L LAB CHEMISTRY METHOD 10/20/2024 2:50 PM [facility] Anion Gap 6 3 - 11 LAB CHEMISTRY METHOD 10/20/2024 2:50 PM [facility] Glucose 137(H) 70 - 100 mg/dL LAB CHEMISTRY METHOD 10/20/2024 2:50 PM [facility] BUN 19 5 - 25 mg/dL LAB CHEMISTRY METHOD 10/20/2024 2:50 PM [facility] Creatinine 0.81 0.70 - 1.30 mg/dL LAB CHEMISTRY METHOD 10/20/2024 2:50 PM [facility] eGFR 96 >=60 mL/min/1. 73m2 LAB CHEMISTRY METHOD 10/20/2024 2:50 PM [facility] Comment:Calculation based on the??Chronic Kidney Disease Epidemiology Collaboration (CKD-EPI) equation refit??without adjustment for race. BUN/Creatinine Ratio 23.5 LAB CHEMISTRY METHOD 10/20/2024 2:50 PM [facility] Calcium 9.5 8.5 - 10.5 mg/dL LAB CHEMISTRY METHOD 10/20/2024 2:50 PM [facility] AST (SGOT) 25 10 - 42 unit/L LAB CHEMISTRY METHOD 10/20/2024 2:50 PM [facility] ALT (SGPT) 44 10 - 60 unit/L LAB CHEMISTRY METHOD 10/20/2024 2:50 PM [facility] Alkaline Phosphatase 73 42 - 121 unit/L LAB CHEMISTRY METHOD 10/20/2024 2:50 PM [facility] Total Protein 6.7 6.0 - 8.0 g/dL LAB CHEMISTRY METHOD 10/20/2024 2:50 PM [facility] Albumin 4.0 3.2 - 5.0 g/dL LAB CHEMISTRY METHOD 10/20/2024 2:50 PM EST [facility] Total Bilirubin 0.6 0.0 - 1.4 mg/dL LAB CHEMISTRY METHOD 10/20/2024 2:50 PM EST [facility] Blood Venous blood specimen / Unknown Venipuncture / Unknown 10/20/2024 10:37 AM EST 10/20/2024 10:37 AM EST Ed VAZQUEZ LAB BLOOD ORDERABLES Final Res ult [facility] ([facility] [address] [place] [address], * Colonoscopy (05/05/2024) [facility] Colonoscopy abstracted, no interpretation Anatomical Region Laterality Modality Other Historical Provider HEALTH MAINTENANCE Final Result * CT LUNG SCREENING LOW DOSE (12/20/2023 10:30 AM EDT) Anatomical Region Laterality Modality Computed Tomogra phy 12/17/2023 7:32 AM EDT Narrative 12/20/2023 10:30 AM EDT [facility] Diagnostic Imaging Department [address] [place] [address] Patient: ??MARCO WHITE ?/Age/Sex: 1955 - 68 - M Unit#: ??[id number] ? Location/Status: ??SPDICATLS/REG CLI ? Mnemonic/Ordering Site: ??CTLUNGLD/SPCT Ordering Physician: ??ANGIE GRAY MD CT Lung Screening Low Dose - 12/17/23 - [id number] Report Status:Signed PROCEDURE: Chest CT INDICATION: Lung cancer screening. ??Current smoker. ??54 pack year smoking history TECHNIQUE: Chest CT without contrast. Multi planar reformats were created and interpreted. The examination was performed utilizing dose reduction techniques. COMPARISON: ??12/05/2021 and 12/11/2022. FINDINGS: LUNGS/PLEURA: Central airways are patent. ??No suspicious pulmonary nodules.. No pleural effusion or pneumothorax. MEDIASTINUM: Thyroid gland is unremarkable. No mediastinal or hilar lymphadenopathy. Cardiac chambers are normal in size. No pericardial effusion. Severe coronary artery calcification. ??Esophagus is normal. CHEST WALL: No axillary lymphadenopathy or superficial hematoma. UPPER ABDOMEN:Hepatic steatosis. BONES: No acute fracture. ??Degenerative fusion at T10-11 disc space Scattered degenerative changes seen throughout the bones. IMPRESSION: No suspicious pulmonary nodules. ??Lung RADS 1-negative. ??Recommend continued screening with low-dose chest CT in 12 months Dictating Physician: ??ALBER JOHNSON MD Electronically Signed by: ??ALBER JOHNSON MD Dic Date/Time: ??12/20/23 1028 Sign date/Time: ??12/20/23 1030 Procedure Note Alber Johnson MD - 04/10/2024 [facility] Diagnostic Imaging Department [address] [place] [address] Patient: MARCO WHITE./Age/Sex: 1955 - - M Unit#: [id number] Location/Status: SPDICATLS/REG CLI Mnemonic/Ordering Site: [facility] Ordering Physician: ANGIE GRAY MD CT Lung Screening Low Dose - 12/17/23 - [id number] Report Status:Signed PROCEDURE: Chest CT INDICATION: Lung cancer screening. Current smoker. 54 pack yearsmoking history TECHNIQUE: Chest CT without contrast. Multi planar reformats were createdand interpreted. The examination was performed utilizing dose reductiontechniques. COMPARISON: 12/05/2021 and 12/11/2022. FINDINGS: LUNGS/PLEURA: Central airways are patent. No suspicious pulmonarynodules.. No pleural effusion or pneumothorax. MEDIASTINUM: Thyroid gland is unremarkable. No mediastinal or hilar lymphadenopathy. Cardiac chambers are normal in size. No pericardialeffusion. Severe coronary artery calcification. Esophagus is normal. CHEST WALL: No axillary lymphadenopathy or superficial hematoma. UPPER ABDOMEN:Hepatic steatosis. BONES: No acute fracture. Degenerative fusion at T10-11 disc spaceScattered degenerative changes seen throughout the bones. IMPRESSION: No suspicious pulmonary nodules. Lung RADS 1-negative. Recommendcontinued screening with low-dose chest CT in 12 months Dictating Physician: ALBER JOHNSON MD Electronically Signed by: ALBER JOHNSON MD Dic Date/Time: 12/20/23 1028 Sign date/Time: 12/20/23 1030 Angie Gray MD IMG CT PROCEDURES Final Result * Hepatitis C Screening (05/21/2016) Hepatitis C Screening abstracted Historical Provider HEALTH MAINTENANCE Final Result from Last 3 Months or Most Recently Relevant to Health Maintenance Insurance [employer] [employer] - [place] MEDICARE ADVANTAGE Advance Directives Documents on File Type Date Recorded Patient Heater Furnace Expl anation Health Care Decision (hx) 02/06/2022 AD RAMOS DIRECTIVE Health Care Decision (hx) 02/06/2022 AD RAMOS DIRECTIVE Health Care Decision (hx) 02/06/2022 AD RAMOS DIRECTIVE Health Care Decision (hx) 02/06/2022 AD RAMOS DIRECTIVE Health Care Decision (hx) 02/06/2022 AD RAMOS DIRECTIVE Care Teams Food And Beverage Attendant Relationship Specialty Start Date End Date Ivan Weller MD [address] [place] [id number] PCP - General 07/11/18
== END 2024-12-06 10:12 | disposition home or self-care (01) ==
LOC: HO.HNS 10:01
PROVIDERS: PCP Pediatrics; Visit Provider Physician Assistant
DX: Z98.1 Arthrodesis status (principal)
CPT/HCPCS: 99024

== ENCOUNTER 2025-01-17 10:20 | Outpatient (REF) | payer MEDICARE, SELFPAY ==
--- NOTE | ~2025-01-17 | XR_ITS ---
EXAMINATION: XR SACROILIAC JOINTS CLINICAL INFORMATION: Z98.1 - Arthrodesis status COMPARISON: March 20, 2024 TECHNIQUE: 3 views of the sacroiliac joints FINDINGS: No acute cortical disruption. No vacuum phenomenon. No lytic or blastic lesions. Degenerative changes in the right coxofemoral joint and symphysis joints. Osteopenia versus osteoporosis. Focal calcifications in the ischium. XR/XR sacroiliac joint 1-2V IMPRESSION: No sacroiliitis. Mild osteoarthrosis, right hip. Degenerative changes in the ischium and symphysis pubis. Electronically signed by: Brando Richmond MD 01/17/2025 03:07 PM EDT
== END 2025-01-17 10:21 | disposition home or self-care (01) ==
LOC: HO.HOSX 10:20
PROVIDERS: Visit Provider Physician Assistant
DX: Z98.1 Arthrodesis status (principal)
CPT/HCPCS: 72200; 99212

== ENCOUNTER 2025-01-17 12:53 | Outpatient (AMB) | payer MEDICARE, SELFPAY ==
--- NOTE | 2025-01-17 13:20 | A.SPINEOV_ITS ---
Intake Visit Reasons: 2nd post op with Xrays Intake Note: Mr. Montenegro is here today for his 2nd post op with x-rays. Transportation Operations Manager Required: No Allergies No Known Allergies Allergy (Verified 01/17/25 13:20) Assessment & Plan Assessment & Plan (1) S/P fusion of sacroiliac joint: Code(s): Z98.1 - Arthrodesis status Category: Medical Plan Operative procedure: Left sacroiliac joint fusion Denys comes in today for his 2nd postoperative appointment after having a left SI joint fusion completed by Dr. Jimenez about 2.5 months ago. He is accompanied by his Rafaela. He reports that overall he has continued to heal fairly well since his surgery. He states he has thus far made about a 25% improvement. He is able to walk from the car into a building or store without stopping long term now. He also reports he feels more stable when ambulating. I reviewed his X-ray imaging which shows stable placement of the surgical construct with no changes from fluoro. No new neurological deficits. The patient ambulates well and rises from a seated position without difficulty. There is no need for continued routine follow-up with Denys. Carlos Jimenez MD,PhD [facility] Coding Level of Care Code Global (24911) Diagnoses S/P fusion of sacroiliac joint Z98.1
--- OUTSIDE RECORDS SUMMARY | 2025-01-17 13:33 | XMS_ITS | Clinical Summary ---
Author Organization [facility] Address [address] [place] [address] Care Team Providers Care Bench Scientist Name Role Phone Garett Weller MD Primary Care Provider [phone] Allergies No known active allergies Medications Medication [...] age to complete this topic Care Teams Bench Scientist Relationship Specialty Start Date End Date Garett Weller MD PCP - General Cardiac Rehabilitation Program Director 12/01/17
== END 2025-01-17 13:48 | disposition home or self-care (01) ==
LOC: HO.HNS 12:54
PROVIDERS: PCP Pediatrics; Visit Provider Physician Assistant
DX: Z98.1 Arthrodesis status (principal)
CPT/HCPCS: 99024

== ENCOUNTER → 2025-01-17 13:01 | Outpatient (BNV) | payer MEDICARE, SELFPAY | PROVIDERS: Visit Provider Radiology Diagnostic Radiology | DX: M19.90 Unspecified osteoarthritis, unspecified site (principal) | CPT/HCPCS: 72200 ==

== ENCOUNTER 2025-01-29 14:18 | Outpatient (REF) | payer MEDICARE, SELFPAY ==
--- NOTE | ~2025-01-29 | XR_ITS ---
EXAMINATION: XR LUMBOSACRAL SPINE CLINICAL INFORMATION: M54.9 - Dorsalgia, unspecified COMPARISON: None available. TECHNIQUE: Two views of the lumbosacral spine. FINDINGS: No scoliosis. Normal lordosis. No subluxations. There is an age-indeterminate mild superior endplate compression deformity of L4. There is an age-indeterminate mild superior endplate concavity of L5. There is minimal wedging of L2, likely chronic. Mild diffuse disc degeneration present with bridging disc osteophytes spanning T12-L1, L1-L2, and L2-L3. Normal facet alignment. Mild degenerative facet changes L5-S1. Sacrum appears intact. There are bilateral SI joint cortical grafts in place. Soft tissues demonstrate vascular calcifications. XR/XR lumbar spine 2-3V IMPRESSION: 1. Age-indeterminate superior endplate concavity L4. 2. Age-indeterminate minimal superior endplate concavity L5. 3. Likely old minimal superior endplate concavity of L2. 4. Mild to moderate degenerative spondylosis of the spine. 5. Cortical strut grafts appear to be fusing the SI joints. Electronically signed by: Keaton Lee MD 01/29/2025 04:03 PM EDT
--- NOTE | ~2025-01-29 | XR_ITS ---
EXAMINATION: XR PELVIS CLINICAL INFORMATION: Z98.1 - Arthrodesis status COMPARISON: None available. TECHNIQUE: AP and lateral view of the pelvis. FINDINGS: There is a mild superior endplate compression fracture of L4. This is age indeterminant. There is a minimal superior endplate concavity of L5, also age indeterminate. There are no fractures. The hip joints are normally aligned. There are arthritic changes in the lower lumbar spine. There are arthritic changes in both SI joints. There are moderate degenerative changes in both hip joints. There have been placement of likely cortical versus radiolucent grafts in both SI joints. There are superimposed degenerative changes in both SI joints. There are enthesopathic changes at the hamstrings insertions. There are moderate vascular calcifications in the soft tissues. XR/XR pelvis 1-2V IMPRESSION: 1. Superior endplate concavities of L4 and likely L5. These are age-indeterminate. 2. Placement of cortical versus radiolucent grafts in both SI joints. There are degenerative changes in both SI joints. 3. Otherwise, no definite acute findings of the pelvis or hip joints. Degenerative changes as discussed. Electronically signed by: Keaton Lee MD 01/29/2025 03:58 PM EDT
== END 2025-01-29 14:19 | disposition home or self-care (01) ==
LOC: HO.HOSX 14:18
PROVIDERS: PCP Pediatrics; Visit Provider Physician Assistant
DX: Z98.1 Arthrodesis status (principal); M54.9 Dorsalgia, unspecified
CPT/HCPCS: 72100; 72170; 99212

== ENCOUNTER 2025-01-29 14:18 | Outpatient (AMB) | payer MEDICARE, SELFPAY ==
--- NOTE | 2025-01-29 14:24 | HO.SPINEOV ---
Intake Visit Reasons: back pain Intake Note: Mr. Montenegro is here today c/o back pain. Wine Cellar Stock Clerk Required: No Allergies No Known Allergies Allergy (Verified 01/29/25 14:35) Assessment & Plan Assessment & Plan (1) S/P fusion of sacroiliac joint: Code(s): Z98.1 - Arthrodesis status Category: Surgical (2) Back pain: Code(s): M54.9 - Dorsalgia, unspecified Category: Medical Plan Mr Montenegro came back in the office today for follow-up. He underwent bilateral SI joint fusion with good response. About 3 or 4 days ago he was on a ladder fixing something and fell backwards and landed right on his buttocks. His legs were straight out at the time so he landed flat on his butt, and felt immediately some pain along his waistline. No lower extremity symptoms no cauda equina symptoms. He came in the office today for follow-up and to check on his implants. He is very uncomfortable, he can stand up straight but he walks with a slightly flexed posture. His strength in his lower extremities is somewhat limited by pain but I believe it to be full with somewhat diminished reflexes at the patella. I sent him for x-rays of his pelvis and his lumbar spine. I can see the implants look fine and do not appear to have shifted. For the rest of the pelvic x-ray, I will await radiology read. From the lumbar standpoint however, it looks like he has to compression deformities at L4 and L5. I compared his MRI from [facility] a few years ago to these x-rays and I can clearly see some wedging of the bones. Given his fall and the new findings on the x-ray I am going to submit for an urgent MRI. The x-rays have not been formally read yet, however given the amount of pain he has and I suspect these are compression fractures. I instructed him to avoid heavy lifting or strenuous activity including yd work. He does not need a brace. I will follow up with him after the MRIs completed. Total amount of time spent in this visit was 20 minutes in discussion of symptoms, x-ray imaging results and subsequent plan of care Ed Jimenez MD,PhD [facility] Orders: Orders XR pelvis 1-2V Today Z98.1 - Arthrodesis status XR lumbar spine 2-3V Today M54.9 - Dorsalgia, unspecified MR lumbar spine wo con Today M54.9 - Dorsalgia, unspecified Medications: New methocarbamol 500 mg PO Q6H 30 tabs 1RF Coding Level of Care Code Est Pt Level 3 (53918) Diagnoses S/P fusion of sacroiliac joint Z98.1 Back pain M54.9
--- OUTSIDE RECORDS SUMMARY | 2025-01-29 16:15 | XMS_ITS | Clinical Summary ---
Author Organization [facility] Address [address] [place] [address] Care Team Providers Care Harvest Manager Name Role Phone Garett Weller MD Primary Care Provider [phone] Allergies No known active allergies Medications Medication [...] 11/23/2020 Fall Risk Assessment 11/23/2020 Influenza Vaccine (Season Ended) 2025 DTap / Tdap / Td (2 - [...] age to complete this topic Care Teams Harvest Manager Relationship Specialty Start Date End Date Garett Weller MD PCP - General Import Dispatcher 12/01/17
== END 2025-01-29 15:38 | disposition home or self-care (01) ==
LOC: HO.HNS 14:18
PROVIDERS: PCP Pediatrics; Visit Provider Physician Assistant
DX: M54.9 Dorsalgia, unspecified (principal); Z98.1 Arthrodesis status
CPT/HCPCS: 99213

== ENCOUNTER → 2025-01-29 15:05 | Outpatient (BNV) | payer MEDICARE, SELFPAY | PROVIDERS: PCP Pediatrics; Visit Provider Radiology Diagnostic Radiology | DX: M47.816 Spondylosis without myelopathy or radiculopathy, lumbar region (principal); M16.0 Bilateral primary osteoarthritis of hip | CPT/HCPCS: 72100; 72170 ==

== ENCOUNTER → 2025-01-31 14:58 | Outpatient (BNV) | payer MEDICARE, SELFPAY | PROVIDERS: PCP Pediatrics; Visit Provider Radiology Diagnostic Radiology | DX: S32.020A Wedge compression fracture of second lumbar vertebra, initial encounter for closed fracture (principal) | CPT/HCPCS: 72148 ==

== ENCOUNTER 2025-01-31 15:04 | Outpatient (REF) | payer MEDICARE, SELFPAY ==
--- NOTE | ~2025-01-31 | MR_ITS ---
EXAM: MRI lumbar spine without contrast TECHNIQUE: Multiplanar multisequence imaging was performed through the lumbar spine without contrast. INDICATION: Low back pain after falling one week ago, fusion November 2024 PRIOR: X-ray from 2 days ago FINDINGS: 5 non-rib bearing lumbar segments are present on x-ray. If level specific intervention is planned, correlate with an x-ray to ensure concordant numbering. Marrow and end-plates: L2: There is concavity with marrow edema involving the superior endplate of L2 with 30% loss of height consistent with fracture. L4: There is mild superior endplate concavity and 30% loss of height. L5: There is fracture through the anterosuperior corner of the vertebral body that is impacted 15% along its dorsal margin. There is moderate marrow edema. Alignment: Vertebral body alignment is preserved. Soft tissues: There is a 3 x 4 cm exophytic mass extending medially from the left kidney. The majority of the mass demonstrates low intermediate signal on T1 imaging and high signal on fluid sensitive sequences. However, there is a 1.0 x 2.3 cm (CC by AP) area inferiorly that demonstrates lower T1 signal and intermediate signal on fluid sensitive sequences but could represent mural thickening. Conus: The termination of conus medullaris is within normal limits at the level of L2. T12-L1: There is mild loss of disc height and broad-based disc bulge without spinal stenosis or foraminal narrowing. L1-L2: There is mild loss of disc height and disc bulge without spinal stenosis or foraminal narrowing. L2-L3: There is subtle disc bulge without spinal stenosis or foraminal narrowing. L3-L4: Mild broad-based disc bulge and prominent posterior epidural fat results in mild spinal stenosis and mild foraminal narrowing. L4-L5: Mild broad-based disc bulge does not result in spinal stenosis. There is also moderate right greater than left facet degeneration with osteophytes. Additionally, there is mild right and moderate left foraminal narrowing. L5-S1: There is circumferential broad-based disc bulge and moderate to severe facet degeneration with hypertrophy. There is minimal narrowing of the subarticular zones without spinal stenosis. There is moderate left greater than right foraminal narrowing. MR/MR lumbar spine wo con IMPRESSION: Acute superior endplate compression fractures involving L2, L4, and L5. 3 x 4 cm left renal cyst with possible mural nodule or wall thickening along the inferior margin is incompletely characterized. Follow-up CT or MRI renal mass protocol without and with IV contrast. L3-L4: There is mild spinal stenosis and mild bilateral foraminal narrowing. L4-L5: There is mild right and moderate left foraminal narrowing. L5-S1: . There is moderate left greater than right foraminal narrowing and mild lateral recess narrowing. Electronically signed by: Freddy Hardy MD 01/31/2025 04:13 PM EDT
--- OUTSIDE RECORDS SUMMARY | 2025-01-31 17:26 | XMS_ITS | Clinical Summary ---
Author Organization [facility] Address [address] [place] [address] Care Team Providers Care Distributor Cleaner Name Role Phone Garett Weller MD Primary Care Provider [phone] Allergies No known active allergies Medications Medication [...] age to complete this topic Care Teams Distributor Cleaner Relationship Specialty Start Date End Date Garett Weller MD PCP - General Machine Feller 12/01/17
== END 2025-01-31 15:05 | disposition home or self-care (01) ==
LOC: HO.MRI 15:04
PROVIDERS: PCP Pediatrics; Visit Provider Physician Assistant
DX: M54.9 Dorsalgia, unspecified (principal)
CPT/HCPCS: 72148